=== PATIENT | female | born 1985 | race African-American/Black ===

== ENCOUNTER 2019-12-27 14:13 | Emergency (ER) | payer SELFPAY ==
[~2019-12-27] VITALS: Ht 172.7 cm; Wt 84.4 kg
[2019-12-27 14:27] VITALS: BP 124/89
--- NOTE | 2019-12-27 14:44 | PHYS DOC ---
Past History Past Medical History: Asthma Past Surgical History: No Surgical History Alcohol Use: None Adult General Chief Complaint Chief Complaint: DENTAL PROBLEM HPI HPI Patient is a 34-year-old female who presented to ER today for evaluation of right upper dental pain that been going on for several months. Patient is afraid that she will HAVE infection so she came in for evaluation today. Patient denies any fever. SHe can open and close mouth without a problem. She denies any headache, no neck pain. Review of Systems Review of Systems Constitutional: Denies fever or chills [] Eyes: Denies change in visual acuity, redness, or eye pain [] HENT: Denies nasal congestion or sore throat [] Respiratory: Denies cough or shortness of breath [] Cardiovascular: No additional information not addressed in HPI [] GI: Denies abdominal pain, nausea, vomiting, bloody stools or diarrhea [] : Denies dysuria or hematuria [] Musculoskeletal: Denies back pain or joint pain [] Integument: Denies rash or skin lesions [] Neurologic: Denies headache, focal weakness or sensory changes [] Endocrine: Denies polyuria or polydipsia [] All other systems were reviewed and found to be within normal limits, except as documented in this note. Allergies Allergies Allergies Coded Allergies Type Severity Reaction Last Updated Verified Penicillins Allergy Unknown 12/27/19 Yes Physical Exam Physical Exam Constitutional: Well developed, well nourished, no acute distress, non-toxic appearance. [] HENT: Normocephalic, atraumatic, bilateral external ears normal, oropharynx moist, no oral exudates, nose normal. The upper right 2nd molar with a large cavity, some swelling around gumline, no palpable abscess, it is tender to palpation. Eyes: PERRLA, EOMI, conjunctiva normal, no discharge. [] Neck: Normal range of motion, no tenderness, supple, no stridor. NO TRISMUS. Cardiovascular:Heart rate regular rhythm, no murmur [] Lungs & Thorax: Bilateral breath sounds clear to auscultation [] Neurologic: Alert and oriented X 3, normal motor function, normal sensory function, no focal deficits noted. [] Psychologic: Affect normal, judgement normal, mood normal. [] Current Patient Data Vital Signs Vital Signs Date Time Temp Pulse Resp B/P (MAP) Pulse Ox O2 Delivery O2 Flow Rate FiO2 12/27/19 14:27 98.6 86 16 124/89 (101) 100 Room Air EKG EKG [] Radiology/Procedures Radiology/Procedures [] Course & Med Decision Making Course & Med Decision Making Pertinent Labs and Imaging studies reviewed. (See chart for details) Patient is a 34 year-old female who has chronic dental caries on the right upper second molar, came to ER for evaluation, There is no swelling, no active infection. Patient can open and close her mouth without any problem. No trismus. Medical SCREENING EXAM WAS DONE, PATIENT ELECTED TO GO HOME AND HER WILL TAKE HER TO SEE DENTIST THIS WEEK. Dragon Disclaimer Dragon Disclaimer This electronic medical record was generated, in whole or in part, using a voice recognition dictation system. Departure Departure: Impression: Primary Impression: Dental caries Additional Impression: Encounter for medical screening examination Disposition: 01 HOME, SELF-CARE Condition: STABLE Referrals: PCP,NO (PCP) FOLLOW UP WITH YOUR DENTIST FOR EVALUATION THIS WEEK. Patient Instructions: Dental Caries, Medical Screening Exam Problem Qualifiers NIYA THORNE DO Dec 27, 2019 14:44
== END 2019-12-27 14:40 | disposition home or self-care (01) ==
LOC: ER 14:13
DX: K02.9 Dental caries, unspecified (principal); J45.909 Unspecified asthma, uncomplicated; Z88.0 Allergy status to penicillin
CPT/HCPCS: 99281